=== PATIENT | female | born 1955 | race Caucasian/White ===

== ENCOUNTER 2019-03-04 13:18 | Emergency (ER) | payer OTHER ==
[~2019-03-04] VITALS: Ht 152.4 cm; Wt 48.5 kg
[2019-03-04 13:21] VITALS: BP 130/66
[2019-03-04] MEDS ORDERED: DEXAMETHASONE 4 MG TABLET ONE (14:11)
[2019-03-04] MEDS ORDERED: KETOROLAC 30 MG/1 ML ONE (14:12)
[2019-03-04] MEDS ORDERED: BENZONATATE 100 MG CAPSULE ONE (14:13)
[2019-03-04] MEDS ORDERED: KETOROLAC 30 MG/1 ML IM ONE (14:30)
[2019-03-04] MEDS ORDERED: BENZONATATE 100 MG CAPSULE PO ONE (14:30)
[2019-03-04] MEDS ORDERED: DEXAMETHASONE 4 MG TABLET PO ONE (14:30)
--- NOTE | 2019-03-04 15:17 | NUR ---
Patient/Caregiver given discharge instructions and they have confirmed that they understand the instructions. Patient ambulatory with steady gait.
== END 2019-03-04 15:18 | disposition home or self-care (01) ==
LOC: ED 15:00
DX: J02.0 Streptococcal pharyngitis (principal); H66.002 Acute suppurative otitis media without spontaneous rupture of ear drum, left ear
CPT/HCPCS: 96372; 99283; J1885